=== PATIENT | female | born 1955 | race African-American/Black ===

== ENCOUNTER 2022-06-23 12:15 | Emergency (ER) | payer MEDICARE ==
[~2022-06-23] VITALS: Ht 170.2 cm; Wt 78.0 kg
[~2022-06-23 12:15] MED LIST: AMI2 PO; APIX5TAB PO; ATOR20TA65 PO; DILT300C53 PO; GABA-532 PO; HYDR-4001 PO; LEVO-65 MT; OLME40TA11 PO
[2022-06-23] MEDS ORDERED: ACETAMINOPHEN 325MG TABLET PO ONE (13:15)
[2022-06-23] MEDS ORDERED: METHOCARBAMOL 750MG TABLET PO SCH (13:15)
[2022-06-23] MEDS ORDERED: KETOROLAC 60MG/2ML VIAL IM ONE (14:15)
[2022-06-23 14:31] VITALS: BP 165/81
[2022-06-23] MEDS ORDERED: LIDO1ADH23 TP (14:39)
[2022-06-23] MEDS ORDERED: METH-653 MT (14:39)
[2022-06-23] MEDS ORDERED: IBUP-2028 MT (14:39)
== END 2022-06-23 14:56 | disposition home or self-care (01) ==
LOC: ER 12:15
DX: M19.041 Primary osteoarthritis, right hand (principal); E11.9 Type 2 diabetes mellitus without complications; I10 Essential (primary) hypertension; Z79.899 Other long term (current) drug therapy; Z98.890 Other specified postprocedural states
CPT/HCPCS: 70450; 73080; 73090; 73130; 96372; 99284; J1885